=== PATIENT | male | born 1990 | race Two or more races ===

== ENCOUNTER 2022-11-25 14:34 | Emergency (ER) | payer OTHER ==
[~2022-11-25] VITALS: Ht 175.3 cm; Wt 86.2 kg
[2022-11-25] MEDS ORDERED: IBUP-1955 PO ×2 (14:58→15:00)
[2022-11-25] MEDS ORDERED: IBUPROFEN 600 MG TABLET ONE (15:02)
[2022-11-25] MEDS: IBUPROFEN 600 MG TABLET PO ONE (15:04)
[2022-11-25 15:10] VITALS: BP 118/75
== END 2022-11-25 15:12 ==
LOC: ER 14:48
DX: S00.511A Abrasion of lip, initial encounter (principal); Y04.8XXA Assault by other bodily force, initial encounter; Y93.89 Activity, other specified; Y92.89 Other specified places as the place of occurrence of the external cause; Y99.8 Other external cause status

== ENCOUNTER 2024-03-07 23:36 | Emergency (ER) | payer MEDICAID, OTHER ==
[~2024-03-07] VITALS: Ht 175.3 cm; Wt 72.6 kg
[~2024-03-07 23:36] MED LIST: IBUP-1955 PO
[2024-03-07 23:39] VITALS: TEMP 98.1
[2024-03-08] MEDS ORDERED: MECLIZINE HCL 25 MG TABLET ONE (00:09)
[2024-03-08 00:10] LABS: BASOPHILS % (AUTO) 0.5 % (0.0-2.0); EOSINOPHILS # (AUTO) 0.1 K/uL (0.0-0.7); EOSINOPHILS % (AUTO) 1.2 % (0.0-6.0); HEMATOCRIT 46 % (39-51); LYMPHOCYTES # (AUTO) 1.5 K/uL (0.8-4.8); MEAN CORPUSCULAR HEMOGLOBIN 36 PG (26.0-33.0); MEAN CORPUSCULAR HGB CONC 35 g/dl (31.0-36.0); MEAN CORPUSCULAR VOLUME 101 fL (80-96); MONOCYTES # (AUTO) 0.9 K/uL (0.1-1.30); MONOCYTES % (AUTO) 9.6 % (2.0-12.0); NEUTROPHILS % (AUTO) 72.7 % (43.0-81.0); PLATELET COUNT (AUTO) 211 K/uL (150-450); RED BLOOD CELL COUNT(AUTO) 4.49 MIL/uL (4.5-6.0); RED CELL DISTRIBUTION WIDTH 15.9 % (11.5-15.0); WHITE BLOOD COUNT (AUTO) 9.7 K/uL (4.3-11.0)
[2024-03-08] MEDS: MECLIZINE HCL 25 MG TABLET PO ONE (00:13)
[2024-03-08 00:23] LABS: CALCIUM, SERUM 7.8 mg/dL (8.5-10.1); CARBON DIOXIDE 23 mmol/L (21-32); CHLORIDE 105 mmol/L (98-107); CREATININE 1.4 mg/dL (0.6-1.3); GLUCOSE 101 mg/dL (74-106); POTASSIUM 3.6 mmol/L (3.5-5.1); SODIUM SERUM 137 mmol/L (136-145); UREA NITROGEN, BLOOD 21 mg/dL (7-18)
[2024-03-08 05:12] VITALS: BP 119/70; O2SAT 96
== END 2024-03-08 05:27 | disposition home or self-care (01) ==
LOC: ER 23:38
DX: R42 Dizziness and giddiness (principal); Z79.899 Other long term (current) drug therapy; Z88.0 Allergy status to penicillin
CPT/HCPCS: 99285; 93005; 71045; 70450; 85025; 80048; 83735; 36415; 84484; 82962; 80320; J8597; G0480